=== PATIENT | male | born 1960 | race African-American/Black ===

== ENCOUNTER 2018-03-13 09:10 | Emergency (ER) | payer OTHER ==
[2018-03-13 09:40] LABS: Absolute Lymphocytes (CBC) 1.8 K/uL (0.7-4.9); Absolute Monocytes 0.5 K/uL (0.1-1.3); Absolute Neutrophil 4.5 K/uL (1.8-8.0); Basophils % 0.4 % (0-1.3); Eosinophils % 2.6 % (0-4.4); Hematocrit 41.6 % (39.6-49.0); Lymphocytes % 25.8 % (15.3-44.8); MCH 30.9 pg (27.0-35.0); MCV 93.2 fL (80-100); MPV 8.7 fL (7.6-11.3); Monocytes % 7.6 % (3.3-12.3); RBC Red Blood Cell Count 4.46 M/uL (4.33-5.43)
[2018-03-13 09:49] LABS: Bicarbonate 24 mEq/L (21-31); Glucose Level 115 mg/dL (65-120); Potassium 3.4 mEq/L (3.6-5.0); Sodium Level 137 mEq/L (135-145)
[2018-03-13 09:50] LABS: BUN Blood Urea Nitrogen 14 mg/dL (6-20)
--- NOTE | 2018-03-13 10:17 | ER ---
Nurse's Notes [facility] Name: Casimiro Henriquez Age: 58 yrs Sex: Male : 1960 Arrival Date: 03/13/2018 Time: 09:11 Bed 2 Private MD: Judah Modi T Diagnosis: Chest pain, unspecified Presentation: 03/13 09:15 Presenting complaint: Patient states: constant left sided chest pain that started last sv night and has gotten worse since this morning. Denies SOB. Transition of care: patient was not received from another setting of care. Onset of symptoms was March 12, 2018. Risk Assessment: Do you want to hurt yourself or someone else? Patient reports no desire to harm self or others. Care prior to arrival: None. 09:15 Method Of Arrival: Wheelchair sv 09:15 Acuity: ALDA 3 sv 09:25 Initial Sepsis Screen: Does the patient meet any 2 criteria? No. Patient's initial hb sepsis screen is negative. Does the patient have a suspected source of infection? No. Patient's initial sepsis screen is negative. Historical: - Allergies: 09:18 No Known Allergies; sv - Home Meds: 09:18 unk HTN med [Active]; sv - PMHx: 09:18 Hypertension; High Cholesterol; Gout; sv - PSHx: :18 None; sv - Immunization history:: Adult Immunizations up to date. - Social history:: Smoking status: Patient uses tobacco products, smokes one pack cigarettes per day. Patient uses alcohol, occasionally. - Ebola Screening: : No symptoms or risks identified at this time. Screenin:25 Abuse screen: Denies threats or abuse. Denies injuries from another. Nutritional hb screening: No deficits noted. Tuberculosis screening: No symptoms or risk factors identified. Fall Risk None identified. Assessment: 09:23 General: Appears in no apparent distress. uncomfortable, Behavior is calm, cooperative. hb Pain: Complains of pain in chest Pain does not radiate. Pain currently is 5 out of 10 on a pain scale. Quality of pain is described as burning, pressure, Pain began suddenly, 1 day ago. Neuro: Level of Consciousness is awake, alert, obeys commands, Oriented to person, place, time, situation. Cardiovascular: Heart tones S1 S2 present Capillary refill < 3 seconds Patient's skin is warm and dry. Rhythm is regular. Respiratory: Airway is patent Trachea midline Respiratory effort is even, unlabored, Respiratory pattern is regular, symmetrical, Breath sounds are clear bilaterally. GI: No signs and/or symptoms were reported involving the gastrointestinal system. : No signs and/or symptoms were reported regarding the genitourinary system. EENT: No signs and/or symptoms were reported regarding the EENT system. Derm: No signs and/or symptoms reported regarding the dermatologic system. Skin is intact, is healthy with good turgor, Skin is dry, Skin temperature is warm. Musculoskeletal: No signs and/or symptoms reported regarding the musculoskeletal system. Vital Signs: 09:19 Pulse 71; Resp 24; Temp 98.7(TE); Weight 81.65 kg; Height 5 ft. 11 in. (180.34 cm); sv Pain 5/10; 09:23 BP 143 / 83; hb 09:19 Body Mass Index 25.10 (81.65 kg, 180.34 cm) sv ED Course: 09:11 Patient arrived in ED. sb2 09:11 Judah Modi MD is Private Physician. sb2 09:12 Evelina Florentino, ROSIO is Primary Nurse. ph 09:18 Triage completed. sv 09:19 Junior Hassan MD is Attending Physician. gs 09:19 Arm band placed on right wrist. sv 09:22 Patient has correct armband on for positive identification. Placed in gown. Bed in low hb position. Call light in reach. Side rails up X 1. court recording monitor on. Pulse ox on. NIBP on. 09:22 EKG done, by ED staff, reviewed by Junior Hassan MD. dh3 09:22 Inserted saline lock: 20 gauge in right antecubital area, using aseptic technique. hb Blood collected. Patient maintains SpO2 saturation greater than 95% on room air. 09:44 X-ray completed. Portable x-ray completed in exam room. Patient tolerated procedure mh1 well. 09:44 XRAY Chest (1 view) In Process Unspecified. EDMS 10:42 No provider procedures requiring assistance completed. IV discontinued, intact, ph bleeding controlled, No redness/swelling at site. Pressure dressing applied. Administered Medications: No medications were administered Outcome: 10:17 Discharge ordered by MD. gs 10:42 Patient left the ED. hb 10:42 Discharged to home ambulatory, with significant other. ph 10:42 Condition: good 10:42 Discharge instructions given to patient, Instructed on discharge instructions, follow up and referral plans. Demonstrated understanding of instructions, follow-up care, Prescriptions given X 1. Signatures: Dispatcher [employer] Emmie Kumar RN RN Rimma Carrillo 1 Evelina Florentino RN RN Meggan La RN RN Virgen Mars 3 Junior Hassan MD MD Lisa Castro 2 Corrections: (The following items were deleted from the chart) 19:05 10:42 Discharge instructions given to patient, Instructed on discharge instructions, ph follow up and referral plans. Demonstrated understanding of instructions, follow-up care, ph
--- NOTE | 2018-03-13 10:17 | EDPHYS ---
Physician Documentation [facility] Name: Casimiro Henriquez Age: 58 yrs Sex: Male : 1960 Arrival Date: 03/13/2018 Time: 09:11 Bed 2 Private MD: Judah Modi T ED Physician Junior Hassan HPI: 03/13 10:14 This 58 yrs old Black Male presents to ER via Wheelchair with complaints of Chest Pain. gs 10:14 The patient or guardian reports chest pain that is located primarily in the anterior gs chest wall. Onset: yesterday. The pain does not radiate. Associated signs and symptoms: Pertinent positives: cough, Pertinent negatives: shortness of breath. The chest pain is described as dull. Duration: The patient or guardian reports multiple episodes, that are intermittent, that wax and wane, with no pattern, the episodes last approximately 1 minute(s). Modifying factors: The symptoms are alleviated by nothing. the symptoms are aggravated by movement, twisting torso. Severity of pain: At its worst the pain was moderate in the emergency department the pain has resolved. The patient has experienced similar episodes in the past, a few times. Historical: - Allergies: 09:18 No Known Allergies; sv - Home Meds: 09:18 unk HTN med [Active]; sv - PMHx: 09:18 Hypertension; High Cholesterol; Gout; sv - PSHx: 09:18 None; sv - Immunization history:: Adult Immunizations up to date. - Social history:: Smoking status: Patient uses tobacco products, smokes one pack cigarettes per day. Patient uses alcohol, occasionally. - Ebola Screening: : No symptoms or risks identified at this time. ROS: 10:14 All other systems are negative. gs Exam: 10:14 Head/Face: Normocephalic, atraumatic. Eyes: Pupils equal round and reactive to light, gs extra-ocular motions intact. Lids and lashes normal. Conjunctiva and sclera are non-icteric and not injected. Cornea within normal limits. Periorbital areas with no swelling, redness, or edema. ENT: Nares patent. No nasal discharge, no septal abnormalities noted. Tympanic membranes are normal and external auditory canals are clear. Oropharynx with no redness, swelling, or masses, exudates, or evidence of obstruction, uvula midline. Mucous membranes moist. Neck: Trachea midline, no thyromegaly or masses palpated, and no cervical lymphadenopathy. Supple, full range of motion without nuchal rigidity, or vertebral point tenderness. No Meningismus. Chest/axilla: Normal chest wall appearance and motion. Nontender with no deformity. No lesions are appreciated. Cardiovascular: Regular rate and rhythm with a normal S1 and S2. No gallops, murmurs, or rubs. Normal PMI, no JVD. No pulse deficits. Respiratory: Lungs have equal breath sounds bilaterally, clear to auscultation and percussion. No rales, rhonchi or wheezes noted. No increased work of breathing, no retractions or nasal flaring. Abdomen/GI: Soft, non-tender, with normal bowel sounds. No distension or tympany. No guarding or rebound. No evidence of tenderness throughout. Back: No spinal tenderness. No costovertebral tenderness. Full range of motion. Skin: Warm, dry with normal turgor. Normal color with no rashes, no lesions, and no evidence of cellulitis. MS/ Extremity: Pulses equal, no cyanosis. Neurovascular intact. Full, normal range of motion. Neuro: Awake and alert, GCS 15, oriented to person, place, time, and situation. Cranial nerves II-XII grossly intact. Motor strength 5/5 in all extremities. Sensory grossly intact. Cerebellar exam normal. Normal gait. 10:14 Constitutional: The patient appears alert, awake. 10:17 ECG was reviewed by the Attending Physician. Vital Signs: 09:19 Pulse 71; Resp 24; Temp 98.7(TE); Weight 81.65 kg; Height 5 ft. 11 in. (180.34 cm); sv Pain 5/10; 09:23 BP 143 / 83; hb 09:19 Body Mass Index 25.10 (81.65 kg, 180.34 cm) sv MDM: 09:46 Patient medically screened. 10:14 Differential diagnosis: abnormal EKG, acute myocardial infarction, chest wall pain, gs pleurisy, pneumonia. Data reviewed: vital signs, nurses notes. 03/13 09:24 Order name: Basic Metabolic Panel; Complete Time: 10:06 03/13 09:24 Order name: CBC with Diff; Complete Time: 10: 03/13 09:24 Order name: Troponin (emerg Dept Use Only); Complete Time: : 03/13 09:24 Order name: XRAY Chest (1 view) 03/13 09:24 Order name: EKG; Complete Time: 03/13 09:24 Order name: Cardiac monitoring; Complete Time: 03/13 09:24 Order name: EKG - Nurse/Tech; Complete Time: 03/13 09:24 Order name: IV Saline Lock; Complete Time: 03/13 09:24 Order name: Labs collected and sent; Complete Time: : 03/13 09:24 Order name: O2 Per Protocol; Complete Time: 03/13 09:24 Order name: O2 Sat Monitoring; Complete Time: EC:17 Rate is 72 beats/min. Rhythm is regular. DC interval is normal. QRS interval is normal. gs T waves are Normal. No ST changes noted. Clinical impression: NSR w/ Non-specific ST/T Changes. Interpreted by me. Administered Medications: No medications were administered Disposition: 03/13/18 10:17 Discharged to Home. Impression: Chest pain, unspecified. - Condition is Stable. - Discharge Instructions: Nonspecific Chest Pain. - Prescriptions for Naprosyn 500 mg Oral Tablet - take 1 tablet by ORAL route 2 times per day take with food; 14 tablet. - Medication Reconciliation Form, Thank You Letter, Antibiotic Education, Prescription Opioid Use form. - Follow up: Private Physician; When: 2 - 3 days; Reason: Re-evaluation by your physician. Addendum: 03/17/2018 07:53 Addendum: no clinical signs/symptoms of pneumonia, poor inspiration film one view no g s definite infiltrate. Signatures: Dispatcher [employer] [facility] Emmie Torres RN RN Meggan La RN RN Junior Hassan MD MD Corrections: (The following items were deleted from the chart) 03/13 10:42 10:17 03/13/2018 10:17 Discharged to Home. Impression: Chest pain, unspecified. hb Condition is Stable. Forms are Medication Reconciliation Form, Thank You Letter, Antibiotic Education, Prescription Opioid Use. Follow up: Private Physician; When: 2 - 3 days; Reason: Re-evaluation by your physician. gs
--- NOTE | 2018-03-13 10:38 | EKG ---
Test Date: 2018-03-13 Test Time: 09:15:12 Director Translational: JUAN MEASUREMENT RESULTS: Intervals: Rate: 72 MA: 174 QRSD: 82 QT: 354 QTc: 387 [place]: P: 51 MA: 174 QRS: 21 T: 44 INTERPRETIVE STATEMENTS: Normal sinus rhythm Nonspecific ST and T wave abnormality Abnormal ECG Compared to ECG 02/06/2007 15:06:55 ST (T wave) deviation now present Electronically Signed On 03-13-18 10:37:46 CDT by Jonathan Romano
--- NOTE | 2018-03-13 10:59 | RAD REPORT ---
EXAM DESCRIPTION: Jannet Single View03/13/2018 9:46 am CLINICAL HISTORY: Chest pain COMPARISON: none FINDINGS: A patchy left basilar lung opacity is suspected. Remainder lungs appear clear. The heart i s normal size IMPRESSION: Mild patchy left basilar lung opacity probably represents pneumonia. This should be fol lowed until it is clear to exclude a post obstructive process/underlying mass
== END 2018-03-13 10:42 | disposition home or self-care (01) ==
LOC: ER 09:10
DX: R07.9 Chest pain, unspecified (principal); I10 Essential (primary) hypertension; E78.00 Pure hypercholesterolemia, unspecified; F17.210 Nicotine dependence, cigarettes, uncomplicated
CPT/HCPCS: 36415; 71045; 80048; 84484; 85025; 93005; 99285